=== PATIENT | male | born 1990 | race Asian ===

== ENCOUNTER 2016-12-10 13:38 | Emergency (ER) | payer OTHER ==
[~2016-12-10] VITALS: Ht 182.9 cm; Wt 79.4 kg
[~2016-12-10 13:38] MED LIST: AGM875T PO; CETI10TA17 PO; D-ME118S33 PO; FLT05NA16 NSEACH
--- OUTSIDE RECORDS SUMMARY | 2016-12-10 13:42 | XMS REPORT | Continuity of Care Document ---
Author Author [facility] Organization [facility] Address Unknown Phone Unavailable Care Team Providers Care Motor Vehicle Clerk Name Role Phone ROSAMARIA CLEMENS MD PCP Insurance Providers Payer Name Policy Number Subscriber Name Relationship [employer] [id number] Padilla Moon 18 Self / Same As Patient Problems No known problems or medical conditions. Medications No known medications. Social History No social history. Hospital Discharge Instructions No hospital discharge instructions. Plan of Care No plan of care. Functional Status No functional status results. Allergies, Adverse Reactions, Alerts Allergen Type Severity Reaction Status Last Updated No Allergy Information Available Active 08/02/14 Immunizations No immunization records. Vital Signs No known vital signs results. Results Test Source Date Result Interp. Ref. Range Comments Alanine Aminotransferase (ALT/SGPT) July 27, 2014 4:58pm 24 U/L N 0 -55 Albumin July 27, 2014 4:58pm 4.0 G/DL N 3.2-4.5 Alkaline Phosphatase July 27, 2014 4:58pm 48 U/L N 40-136 Aspartate Amino Transf (AST/SGOT) July 27, 2014 4:58pm 41 U/L H 5- 34 BUN/Creatinine Ratio July 27, 2014 4:58pm 19 - Basophils # (Auto) July 27, 2014 4:58pm 0.0 10^3/uL N 0.0-0.1 Basophils (%) (Auto) July 27, 2014 4:58pm 1 % N 0-10 Blood Urea Nitrogen July 27, 2014 4:58pm 14 MG/DL N 7-18 Calcium Level July 27, 2014 4:58pm 9.2 MG/DL N 8.5-10.1 Carbon Dioxide Level July 27, 2014 4:58pm 25 MMOL/L N 21-32 Chloride Level July 27, 2014 4:58pm 108 MMOL/L H 98-107 Creatinine July 27, 2014 4:58pm 0.75 MG/DL N 0.60-1.30 Eosinophils # (Auto) July 27, 2014 4:58pm 0.3 10^3/uL N 0.0-0.3 Eosinophils (%) (Auto) July 27, 2014 4:58pm 5 % N 0-10 Glucose Level July 27, 2014 4:58pm 108 MG/DL H 70-105 Hematocrit July 27, 2014 4:58pm 39 % L 40-54 Hemoglobin July 27, 2014 4:58pm 13.6 G/DL N 13.3-17.7 Hemoglobin A1c July 27, 2014 4:58pm 5.1 % N 4.5-6.2 Lymphocytes # (Auto) July 27, 2014 4:58pm 2.1 X 10^3 N 1.0-4.0 Lymphocytes (%) (Auto) July 27, 2014 4:58pm 31 % N 12-44 Mean Corpuscular Hemoglobin July 27, 2014 4:58pm 32 PG N 25-34 Mean Corpuscular Hemoglobin Concent July 27, 2014 4:58pm 35 G/DL N 32-36 Mean Corpuscular Volume July 27, 2014 4:58pm 93 FL N 80-99 Mean Platelet Volume July 27, 2014 4:58pm 9.3 FL N 7.4-10.4 Monocytes # (Auto) July 27, 2014 4:58pm 0.7 X 10^3 N 0.0-1.0 Monocytes (%) (Auto) July 27, 2014 4:58pm 10 % N 0-12 Neutrophils # (Auto) July 27, 2014 4:58pm 3.7 X 10^3 N 1.8-7.8 Neutrophils (%) (Auto) July 27, 2014 4:58pm 54 % N 42-75 Platelet Count July 27, 2014 4:58pm 262 10^3/uL N 130-400 Potassium Level July 27, 2014 4:58pm 4.4 MMOL/L N 3.6-5.0 Red Blood Count July 27, 2014 4:58pm 4.26 10^6/uL L 4.35-5.85 Red Cell Distribution Width July 27, 2014 4:58pm 12.1 % N 10.0- 14.5 Sodium Level July 27, 2014 4:58pm 141 MMOL/L N 135-145 TSH [place] Testing July 27, 2014 4:58pm 1.01 UIU/ML N 0.35-4.94 Total Bilirubin July 27, 2014 4:58pm 0.3 MG/DL N 0.1-1.0 Total Protein July 27, 2014 4:58pm 6.5 G/DL N 6.4-8.2 White Blood Count July 27, 2014 4:58pm 6.8 10^3/uL N 4.3-11.0 Estimat Glomerular Filtration Rate July 27, 2014 4:58pm > 60 - GFR INTERPRETIVE DATA UNITS FOR ESTIMATED GFR (eGFR): mL/min/1.73 M2 REFERENCE RANGE FOR ESTIMATED GFR (eGFR) eGFR NORMAL eGFR >60 MODERATELY DECREASED eGFR 30-59 SEVERLY DECREASED eGFR 15-29 KIDNEY FAILURE <15 (OR DIALYSIS) Procedures No known history of procedures. Encounters Encounter Location Date/Time Discharged Recurring [facility] 08/17/14 9:59am
--- NOTE | 2016-12-10 13:51 | ED Upper Extremity ---
General Chief Complaint: Upper Extremity Stated Complaint: RIGHT HAND INJURY Source: patient Exam Limitations: no limitations History of Present Illness Time seen by provider: 13:51 Initial Comments To ER with right hand pain over the first and second and partially the third digits. He punched the wall with a closed fist out of anger then hit it with an open hand Onset: just prior to arrival Severity: moderate Pain/Injury Location: right hand Method of Injury: direct blow Modifying Factors: Worse With Movement Allergies and Home Medications Allergies Coded Allergies: No Known Drug Allergies (Unverified , 12/17/14) Constitutional: see HPI EENTM: see HPI Respiratory: no symptoms reported Cardiovascular: no symptoms reported Genitourinary: no symptoms reported Musculoskeletal: see HPI Skin: no symptoms reported Psychiatric/Neurological: No Symptoms Reported Past Jiynioa-Hktpwy-Shwmqs Hx Patient Social History Recent Foreign Travel: No Contact w/Someone Who Travel: No Immunizations Up To Date Tetanus Booster (TDap): Unknown Seasonal Allergies Seasonal Allergies: No Surgeries HX Surgeries: Yes (NASAL) Respiratory Hx Respiratory Disorders: No Cardiovascular Hx Cardiac Disorders: No Neurological Hx Neurological Disorders: No Genitourinary Hx Genitourinary Disorders: No Gastrointestinal Hx Gastrointestinal Disorders: No Musculoskeletal Hx Musculoskeletal Disorders: No Endocrine Hx Endocrine Disorders: No HEENT HX ENT Disorders: No Cancer Hx Cancer: No Psychosocial Hx Psychiatric Problems: No Integumentary HX Skin/Integumentary Disorder: No Blood Transfusions Hx Blood Disorders: No Physical Exam Vital Signs Vital Sign - Last 12Hours 12/10/16 13:52 Temp 97.5 Pulse 70 Resp 16 B/P 131/89 O2 Delivery Room Air Capillary Refill : General Appearance: WD/WN no apparent distress HEENT: PERRL/EOMI normal ENT inspection Neck: non-tender full range of motion Respiratory: no respiratory distress no accessory muscle use Shoulder: normal inspection non-tender Elbow/Forearm: normal inspection, Right Hand: normal inspection, Right, soft tissue tenderness (there is no swelling deformity or ecchymosis) Neurologic/Psychiatric: alert normal mood/affect oriented x 3 Skin: normal color warm/dry Progress/Results/Core Measures Results/Orders My Orders Orders-JUAN A EDMONDSON APRN Hand, Right, 3 Views (12/10/16 13:43) Vital Signs/I&O Vital Sign - Last 12Hours 12/10/16 13:52 Temp 97.5 Pulse 70 Resp 16 B/P 131/89 O2 Delivery Room Air Departure Impression Impression: Primary Impression: Hand sprain Qualified Code: S63.91XA - Sprain of unspecified part of right wrist and hand , initial encounter Disposition: HOME, SELF-CARE Condition: Stable Departure-Patient Inst. Decision time for Depature: 14:01 Referrals: NO,LOCAL PHYSICIAN (PCP/Family) Primary Care Physician Patient Instructions: Hand Pain Add. Discharge Instructions: 1. Tylenol and Motrin for pain 2. Return to ER for any concerns All discharge instructions reviewed with patient and/or family. Voiced understanding. JUAN A EDMONDSON APRN Dec 10, 2016 13:51
[2016-12-10 14:10] VITALS: BP 128/80
--- NOTE | 2016-12-10 14:14 | Diagnostic Imaging Report ---
Three views of the right hand. INDICATION: Patient punched a wall earlier today. FINDINGS: No fracture, dislocation or radiopaque foreign body. Joint alignment is satisfactory. IMPRESSION: Unremarkable exam. Dictated by: Dictated on workstation # [id number]
== END 2016-12-10 14:10 | disposition home or self-care (01) ==
LOC: EDUNIT# 13:38 → ER 13:39
DX: S63.91XA Sprain of unspecified part of right wrist and hand, initial encounter (principal); W22.01XA Walked into wall, initial encounter; Y99.8 Other external cause status
CPT/HCPCS: 73130; 99283

== ENCOUNTER → 2017-10-01 | Emergency (ER) | payer OTHER ==
[~2017-10-01] VITALS: Ht 182.9 cm; Wt 68.0 kg
[~2017-10-01] MED LIST changes: +ACETAMINOPHEN 500 MG TAB (TYLENOL) PO ONE; +AMOX-358 PO; +IBUPROFEN 800 MG (MOTRIN) TAB PO ONE
--- NOTE | 2017-10-01 15:12 | ED EENT ---
History of Present Illness General Chief Complaint: Fever-Adult/Adol Stated Complaint: SORE THROAT,FEVER Source: patient History of Present Illness Time seen by provider: 15:02 Initial Comments C/O SORE THROAT, SUBJECTIVE FEVER AND BODY ACHES FOR OVER A WEEK. ALSO HAS A COUGH WENT TO [facility] LAST WEEK AND WAS GIVEN RX FOR UNKNOWN ANTIBIOTIC--CEFDINIR PT STATES SYMPTOMS WENT AWAY WHILE ON ANTIBIOTIC, BUT HAS FINISHED IT SYMPTOMS RETURNED YESTERDAY [facility] [facility] Allergies and Home Medications Allergies Coded Allergies: No Known Drug Allergies (Unverified , 12/17/14) Review of Systems Constitutional: see HPI, fever, malaise Eyes: No Symptoms Reported Ears: No Symptoms Reported Nose: no symptoms reported Mouth: no symptoms reported Throat: see HPI, pain Respiratory: cough (OCCASIONAL) Cardiovascular: no symptoms reported Gastrointestinal: no symptoms reported Musculoskeletal: other (BODY ACHES) Skin: no symptoms reported Neurological: No Symptoms Reported Hematologic/Lymphatic: No Symptoms Reported Immunological/Allergic: no symptoms reported Past Fhanvxq-Oreobw-Zjyxae Hx Patient Social History Recent Foreign Travel: No Contact w/Someone Who Travel: No Recent Hopitalizations: No Immunizations Up To Date Tetanus Booster (TDap): Unknown Seasonal Allergies Seasonal Allergies: No Surgeries History of Surgeries: No Respiratory History of Respiratory Disorde: No Cardiovascular History of Cardiac Disorders: No Neurological History of Neurological Disord: No Genitourinary History of Genitourinary Disor: No Gastrointestinal History of Gastrointestinal Di: No Musculoskeletal History of Musculoskeletal Dis: No Endocrine History of Endocrine Disorders: No HEENT History of HEENT Disorders: No Cancer History of Cancer: No Psychosocial History of Psychiatric Problem: No Integumentary History of Skin or Integumenta: No Blood Transfusions History of Blood Disorders: No Physical Exam Vital Signs Vital Sign - Last 12Hours 10/01/17 15:02 Temp 101.5 Pulse 92 Resp 20 B/P (MAP) 128/84 Pulse Ox 98 General Appearance: WD/WN, mild distress Eyes: bilateral eye normal inspection, bilateral eye PERRL, bilateral eye EOMI Ears: bilateral ear auricle normal, bilateral ear canal normal, bilateral ear TM normal Nose: normal inspection Mouth/Throat: No excessive drooling, No tonsillar exudate, No tonsillar swelling, No uvula swelling, No voice changes, other (PHARYNGEAL ERYTHEMA) Neck: non-tender, full range of motion, supple, normal inspection, No lymphadenopathy (R), No lymphadenopathy (L) Cardiovascular: regular rate, rhythm, no edema, no JVD, no murmur Respiratory: normal breath sounds, no respiratory distress, no accessory muscle use Gastrointestinal: normal bowel sounds, non tender, soft, no organomegaly Neurologic/Psychiatric: manager life II-XII nml as tested, no motor/sensory deficits, alert, normal mood/affect, oriented x 3 Skin: normal color, warm/dry, No rash Progress/Results/Core Measures Results/Orders Lab Results Laboratory Tests Test 10/01/17 15:06 Range/Units Group A Streptococcus Screen NEGATIVE NEGATIVE My Orders Orders - LIZET PEÑA DO Rapid Strep A Screen (10/01/17 15:07) Acetaminophen Tablet (Tylenol Tablet) (10/01/17 15:15) Ibuprofen Tablet (Motrin Tablet) (10/01/17 15:15) Medications Given in ED Current Medications Medications Dose Ordered Sig/Huang Route Start Time Stop Time Status Last Admin Dose Admin Acetaminophen 1,000 mg ONCE ONCE PO 10/01/17 15:15 10/01/17 15:16 DC 10/01/17 15:21 1,000 MG Ibuprofen 800 mg ONCE ONCE PO 10/01/17 15:15 10/01/17 15:16 DC 10/01/17 15:21 800 MG Vital Signs/I&O Vital Sign - Last 12Hours 10/01/17 10/01/17 15:02 15:21 Temp 101.5 101.5 Pulse 92 Resp 20 B/P (MAP) 128/84 Pulse Ox 98 Departure Impression Impression: Primary Impression: Pharyngitis Disposition: 01 HOME, SELF-CARE Condition: Stable Departure-Patient Inst. Referrals: NO,LOCAL PHYSICIAN (PCP) Primary Care Physician GHADA ANDREWS MD Patient Instructions: Sore Throat, Adult (DC) Add. Discharge Instructions: TYLENOL 1 GRAM AND MOTRIN 800 MG 4 TIMES A DAY FOR PAIN OR FEVER ROBITUSSIN DM FOR COUGH LOTS OF CLEAR LIQUIDS FREQUENT SALT WATER GARGLES CEPACOL LOZENGES FOR THROAT PAIN FOLLOW UP WITH [facility] IN 3 DAYS IF NO BETTER All discharge instructions reviewed with patient and/or family. Voiced understanding. Scripts Amoxicillin/Potassium Clav (Augmentin 875-125 Tablet) 1 Each Tablet 1 EACH PO BID for INFECTION, #20 TAB Prov: LIZET PEÑA DO 10/01/17 LIZET PEÑA DO Oct 01, 2017 15:12
[2017-10-01 16:09] VITALS: BP 128/84
== END | disposition home or self-care (01) ==
LOC: EDUNIT# 14:57 → ER 14:59
DX: J02.9 Acute pharyngitis, unspecified (principal)
CPT/HCPCS: 87430; 99283